=== PATIENT | male | born 1955 | race Caucasian/White ===

== ENCOUNTER 2019-02-13 06:03 | Observation (INO) ==
[2019-02-13 07:02] LABS: Basophils # 0.1 10*3/uL (0.0-0.2); Eosinophils # 0.5 10*3/uL (0.0-0.87); Hematocrit 46.3 VOL% (42.0-52.0); Hemoglobin 14.4 GM/DL (14.0-18.0); Immature Granulocytes % 0.8 %; Immature Granulocytes Absolute 0.09 #; Lymphocytes # 1.9 10*3/uL (1.4-4.0); Lymphocytes % 16.3 % (21.2-54.2); Mean Corpuscular HGB Conc 31.1 GM/DL (32-36); Mean Corpuscular Hemoglobin 30 PG (27-34); Mean Corpuscular Volume 95.3 FL (87-102); Mean Platelet Volume 8.5 FL (9.6-12.0); Monocytes # 0.9 10*3/uL (0.11-0.8); Monocytes % 7.5 % (1.7-12.7); Neutrophils # 8.1 10*3/uL (1.4-7.4); Neutrophils % 70.4 % (38.7-73.9); Platelet Count 219 T/CUMM (130-400); Red Blood Count 4.86 MC/CUMM (3.8-5.5); Red Cell Distribution Width 13.1 % (9.3-17.3); White Blood Count 11.5 T/CUMM (4-12)
[2019-02-13 07:09] LABS: PT Patient Result 11.1 SECS; Partial Thromboplastin Time 29.3 SECS (0-40)
[2019-02-13 07:24] LABS: Albumin 3.5 G/DL (3.4-5.0); Bilirubin,Total 0.4 MG/DL (0.2-1.0); Calcium 8.1 MG/DL (8.5-10.1); Osmolality,Calculated 287.1 MOS/KG (273-304); Potassium 3.8 MMOL/L (3.5-5.1); Total Protein 6.7 G/DL (6.4-8.3)
[2019-02-13] MEDS ORDERED: ENOXAPARIN 80 MG/0.8 ML SYRINGE SUBCUT STA (07:37)
[2019-02-13] MEDS ORDERED: PROMETHAZINE 25 MG/1 ML VIAL IM PRN (07:44)
[2019-02-13] MEDS ORDERED: ONDANSETRON 4 MG/2 ML VIAL IV PRN (07:44)
[2019-02-13] MEDS ORDERED: ACETAMINOPHEN 325 MG TABLET PO PRN (07:44)
[2019-02-13] MEDS ORDERED: SODIUM CHLORIDE 0.9% 1,000 ML IV SCH (08:00)
[2019-02-13 08:31] LABS: Risk Ratio 2.53; Thyroid Stimulating Hormone 1.99 uIU/ml (0.358-3.74); VLDL CHOLESTEROL 19.6 MG/DL
[2019-02-13] MEDS ORDERED: ASPIRIN 325 MG TABLET PO STA (08:50)
[2019-02-13] MEDS ORDERED: PANTOPRAZOLE 40 MG TABLET PO SCH (09:00)
[2019-02-13] MEDS ORDERED: HEPARIN/NACL 0.9% 2 UNITS/ML 1,000 ML IV ONE (09:22)
[2019-02-13] MEDS ORDERED: LIDOCAINE 1%/EPI INJ 20 ML VIAL ONE (09:22)
[2019-02-13] MEDS ORDERED: fentaNYL 100 MCG/2 ML VIAL ONE (09:24)
[2019-02-13] MEDS ORDERED: MIDAZOLAM 2 MG/2 ML VIAL ONE (09:24)
[2019-02-13 09:43] VITALS: BP 112/62
[2019-02-13 10:23] LABS: Basophils # 0.1 10*3/uL (0.0-0.2); Basophils % 0.5 % (0.0-0.8); Eosinophils # 0.1 10*3/uL (0.0-0.87); Eosinophils % 0.8 % (0.00-10.9); Hematocrit 40.5 VOL% (42.0-52.0); Hemoglobin 12.8 GM/DL (14.0-18.0); Immature Granulocytes % 0.7 %; Lymphocytes # 1.4 10*3/uL (1.4-4.0); Lymphocytes % 9.4 % (21.2-54.2); Mean Corpuscular HGB Conc 31.6 GM/DL (32-36); Mean Corpuscular Hemoglobin 30 PG (27-34); Mean Corpuscular Volume 93.5 FL (87-102); Mean Platelet Volume 8.5 FL (9.6-12.0); Monocytes # 1.1 10*3/uL (0.11-0.8); Monocytes % 7.6 % (1.7-12.7); Neutrophils # 11.7 10*3/uL (1.4-7.4); Platelet Count 197 T/CUMM (130-400); Red Blood Count 4.33 MC/CUMM (3.8-5.5); White Blood Count 14.4 T/CUMM (4-12)
[2019-02-13 10:39] LABS: Troponin I 0.037 NG/ML (0.00-0.045)
[2019-02-13] MEDS ORDERED: PAPAVERINE 60 MG/2 ML VIAL ONE (10:41)
[2019-02-13] MEDS ORDERED: VANCOMYCIN 1,000 MG VIAL ONE (10:42)
[2019-02-13 10:46] LABS: Albumin 2.9 G/DL (3.4-5.0); Bilirubin,Total 0.4 MG/DL (0.2-1.0); Calcium 7.7 MG/DL (8.5-10.1); Osmolality,Calculated 278.7 MOS/KG (273-304); Potassium 4.1 MMOL/L (3.5-5.1)
[2019-02-13 11:31] LABS: ABG HCO3 20.6 MMOL/L (20-26); ABG Oxygen Saturation 99.5 % (95-100); ABG PCO2 32.5 MM HG (35-48); ABG PH 7.419 (7.35-7.45); ABG TCO2 21.6 MMOL/L (23-27); Glucose Heart Surgery 109 MG/DL (74-106); Ionized Calcium Arterial 1.07 MMOL/L (1.21-1.46); PCO2 Patient Temp Arterial 32.5 MMHG; PH Patient Temp Arterial 7.419; Patient Temperature 37 CELCIUS; Potassium Heart/CVR 4.3 MMOL/L (3.5-5.1); Sodium Heart/CVR 137 MMOL/L (135-145)
[2019-02-13 13:06] LABS: Apearance,Urine CLOUDY (Clear); Bilirubin,Urine Negative (Negative); Blood, Urine Negative (Negative); Glucose,Urine (UA) Negative (Negative); Hyaline Casts,Urine 35 /LPF (0-3); Ketones,Urine 5 mg/dL (Negative); Mucus,Urine Few /LPF (Occasional); Nitrite,Urine Negative (Negative); Protein,Urine 100 MG/DL; RBC,Urine 1 /HPF (0-4); Squamous Epithelial Cell,Urine Occasional /HPF (0-10); Urine Color Dark yellow (Yellow); Urine Specific Gravity 1.035 (1.001-1.035); WBC,Urine 3 /HPF (0-6)
[2019-02-13] MEDS ORDERED: PHENobarbital 130 MG/1 ML VIAL IV STA (13:13)
[2019-02-13 13:15] LABS: Hematocrit Heart Surgery 32.5 PERCENT (42-52); Hemoglobin Heart Surgery 10.5 G/DL (14.0-18.0); PCO2 Patient Temp Venous 45.1 MM HG; PH Patient Temp Venous 7.316; PO2 Patient Temp Venous 77.1 MM HG; Potassium Heart/CVR 5.1 MMOL/L (3.5-5.1); VBG Base Excess -3.2 MEQ/L (0-4); VBG HCO3 21.7 MEQ/L (24-28); VBG PCO2 45.1 MMHG (41-51); VBG PH 7.316; VBG PO2 77.1 MMHG (17-40)
[2019-02-13 13:51] LABS: Hematocrit Heart Surgery 46.8 PERCENT (42-52); Hemoglobin Heart Surgery 15.3 G/DL (14.0-18.0); PCO2 Patient Temp Venous 20.4 MM HG; PH Patient Temp Venous 7.545; VBG Base Excess -3.6 MEQ/L (0-4); VBG HCO3 21.4 MEQ/L (24-28); VBG Oxygen Saturation 95.6 %; VBG PCO2 46.4 MMHG (41-51); VBG PH 7.307; VBG PO2 84.3 MMHG (17-40)
[2019-02-13 14:27] LABS: Hematocrit Heart Surgery 31.5 PERCENT (42-52); Hemoglobin Heart Surgery 10.2 G/DL (14.0-18.0); PH Patient Temp Venous 7.522; PO2 Patient Temp Venous 32.4 MM HG; Potassium Heart/CVR 4.2 MMOL/L (3.5-5.1); VBG Base Excess -6.2 MEQ/L (0-4); VBG HCO3 19.3 MEQ/L (24-28); VBG Oxygen Saturation 96.8 %; VBG PCO2 42.3 MMHG (41-51); VBG PH 7.287; VBG PO2 91.4 MMHG (17-40)
[2019-02-13 14:31] LABS: PCO2 Patient Temp Venous 18.6 MM HG
[2019-02-13] MEDS ORDERED: ALBUMIN 5% 12.5 GM/250 ML VIAL IV ONE (14:44)
[2019-02-13] MEDS ORDERED: PHENYLEPHRINE DRIP 40 MG/250 ML PREMIX IV ONE (14:44)
[2019-02-13] MEDS ORDERED: POTASSIUM CHLORIDE RIDER 100 ML IV ONE (14:45)
[2019-02-13 16:08] LABS: Hemoglobin Heart Surgery 9.4 G/DL (14.0-18.0); Potassium Heart/CVR 3.7 MMOL/L (3.5-5.1); VBG Base Excess -5.5 MEQ/L (0-4); VBG HCO3 20.6 MEQ/L (24-28); VBG Oxygen Saturation 71.7 %; VBG PCO2 43.4 MMHG (41-51); VBG PH 7.295
[2019-02-13 16:09] LABS: PH Patient Temp Venous 7.35; VBG Inspired Oxygen 71.1 PERCENT (0-100)
[2019-02-13 16:42] LABS: Hematocrit Heart Surgery 26.8 PERCENT (42-52); Hemoglobin Heart Surgery 8.6 G/DL (14.0-18.0); PCO2 Patient Temp Venous 31.1 MM HG; PH Patient Temp Venous 7.344; PO2 Patient Temp Venous 30.4 MM HG; Potassium Heart/CVR 4.7 MMOL/L (3.5-5.1); VBG Base Excess -7.9 MEQ/L (0-4); VBG HCO3 17.6 MEQ/L (24-28); VBG Oxygen Saturation 66.2 %; VBG PCO2 35.9 MMHG (41-51); VBG PH 7.302; VBG PO2 37.5 MMHG (17-40)
[2019-02-13 17:20] LABS: Hematocrit Heart Surgery 20.7 PERCENT (42-52); Hemoglobin Heart Surgery 6.6 G/DL (14.0-18.0); PCO2 Patient Temp Venous 44.6 MM HG; PH Patient Temp Venous 7.252; PO2 Patient Temp Venous 37.7 MM HG; Potassium Heart/CVR 4.7 MMOL/L (3.5-5.1); VBG HCO3 18.3 MEQ/L (24-28); VBG Oxygen Saturation 65.9 %; VBG PCO2 46.8 MMHG (41-51); VBG PH 7.239; VBG PO2 40.4 MMHG (17-40)
[2019-02-13] MEDS ORDERED: INSULIN REGULAR 100 UNIT/ML ONE (17:34)
[2019-02-13 17:46] LABS: PH Patient Temp Venous 7.315; PO2 Patient Temp Venous 34.2 MM HG; Potassium Heart/CVR 4.5 MMOL/L (3.5-5.1); VBG Base Excess -3.5 MEQ/L (0-4); VBG HCO3 21.2 MEQ/L (24-28); VBG PH 7.315; VBG PO2 34.2 MMHG (17-40)
[2019-02-13 18:08] LABS: Hemoglobin Heart Surgery 5.6 G/DL (14.0-18.0)
[2019-02-13 18:09] LABS: Hematocrit Heart Surgery 17.7 PERCENT (42-52)
[2019-02-13] MEDS ORDERED: SODIUM CHLORIDE 0.9% 1,000 ML IV PRN (18:11)
[2019-02-13] MEDS ORDERED: ATROPINE 1 MG/10 ML SYRINGE ONE (18:50)
[2019-02-13] MEDS ORDERED: CALCIUM CHLORIDE 1,000 MG/10 ML SYRINGE IV ONE (18:50)
[2019-02-13 19:08] LABS: ABG Base Excess 8.9 MMOL/L (-2.5-2.5); ABG HCO3 32.7 MMOL/L (20-26); ABG Oxygen Saturation 99.5 % (95-100); ABG PH 7.336 (7.35-7.45); ABG TCO2 34.7 MMOL/L (23-27); Glucose Heart Surgery 353 MG/DL (74-106); Ionized Calcium Arterial 1.67 MMOL/L (1.21-1.46); PH Patient Temp Arterial 7.336; Patient Temperature 37 CELCIUS; Potassium Heart/CVR 3.3 MMOL/L (3.5-5.1); Sodium Heart/CVR 157 MMOL/L (135-145)
[2019-02-13 19:13] LABS: Hemoglobin Heart Surgery 5.2 G/DL (14.0-18.0)
[2019-02-13 19:14] LABS: Hematocrit Heart Surgery 16.6 PERCENT (42-52)
[2019-02-13] MEDS ORDERED: SODIUM BICARBONATE 10 MEQ/10 ML SYRINGE IV ONE (19:58)
[2019-02-13] MEDS ORDERED: CALCIUM CHLORIDE 1,000 MG/10 ML VIAL IV ONE ×2 (19:58→20:05)
[2019-02-13] MEDS ORDERED: MANNITOL 100 GM/500 ML BAG IV ONE (19:58)
[2019-02-13] MEDS ORDERED: HEPARIN 10,000 UNIT/10 ML VIAL ONE ×2 (19:59→20:05)
[2019-02-13] MEDS ORDERED: PROTAMINE SULFATE 250 MG/25 ML VIAL IV ONE (19:59)
[2019-02-13] MEDS ORDERED: methylPREDNISolone SOD SUC 1,000 MG/8 ML VIAL ONE (19:59)
[2019-02-13] MEDS ORDERED: ALBUMIN 25% 25 GM/100 ML VIAL IV ONE (19:59)
[2019-02-13] MEDS ORDERED: MAGNESIUM SULFATE 10 GM/20 ML VIAL IV ONE (19:59)
[2019-02-13] MEDS ORDERED: DEXTROSE 5% KCL 20 MEQ 60 MEQ/3,000 ML BAG IV ONE (19:59)
[2019-02-13] MEDS ORDERED: FUROSEMIDE 20 MG/2 ML VIAL ONE (20:00)
[2019-02-13] MEDS ORDERED: POTASSIUM CHLORIDE 20 MEQ/10 ML VIAL ONE (20:00)
[2019-02-13] MEDS ORDERED: PHENYLEPHRINE 10 MG/1 ML VIAL IV ONE ×3 (20:00→20:07)
[2019-02-13] MEDS ORDERED: EPINEPHrine 1 MG/10 ML SYRINGE ONE (20:05)
[2019-02-13] MEDS ORDERED: DOBUTamine 500 MG/250 ML PREMIX IV ONE (20:05)
[2019-02-13] MEDS ORDERED: HEPARIN/NACL 0.9% 2 UNITS/ML 500 ML IV ONE (20:05)
[2019-02-13] MEDS ORDERED: SEVOFLURANE 1 UNIT/15 MINUTE INH ONE (20:05)
[2019-02-13] MEDS ORDERED: PHENYLEPHRINE DRIP 20 MG/250 ML PREMIX IV ONE (20:05)
[2019-02-13] MEDS ORDERED: EPINEPHrine 1 MG/ML VIAL ONE (20:06)
[2019-02-13] MEDS ORDERED: MIDAZOLAM 10 MG/2 ML VIAL ONE ×2 (20:06)
[2019-02-13] MEDS ORDERED: SUFentanil 250 MCG/5 ML AMP ONE (20:06)
[2019-02-13] MEDS ORDERED: VECURONIUM 10 MG VIAL IV ONE (20:07)
[2019-02-13] MEDS ORDERED: PHENYLEPHRINE 1 MG/10 ML SYRINGE IV ONE (20:07)
[2019-02-13] MEDS ORDERED: ETOMIDATE 40 MG/20 ML VIAL IV ONE (20:07)
[2019-02-13] MEDS ORDERED: NITROGLYCERIN DRIP 50 MG/250 ML BOTTLE IV ONE (20:07)
[2019-02-13] MEDS ORDERED: AMINOCAPROIC ACID 5,000 MG/20 ML VIAL ONE (20:07)
[2019-02-13] MEDS ORDERED: SUCCINYLCHOLINE 200 MG/10 ML VIAL ONE (20:07)
[2019-02-13] MEDS ORDERED: SODIUM CHLORIDE 0.9% 1,000 ML IV ONE (20:07)
[2019-02-13] MEDS ORDERED: LACTATED RINGERS 1,000 ML IV ONE (20:07)
[2019-02-13] MEDS ORDERED: SODIUM CHLORIDE 0.9% 3,000 ML IV ONE (20:07)
[2019-02-13] MEDS ORDERED: ePHEDrine 50 MG/ML AMP ONE (20:26)
[2019-02-13] MEDS ORDERED: ENOXAPARIN 100 MG/ML SYRINGE SUBCUT SCH (21:00)
== END 2019-02-13 19:20 | disposition expired ==
LOC: N.ED 06:03 → N.EDINP 06:03 → SUATTDRO 07:44 → N.CVR 09:28
PROVIDERS: ADMIT Internal Medicine; ATTEND Internal Medicine Geriatric Medicine